=== PATIENT | female | born 1945 | race Caucasian/White ===

== ENCOUNTER → 2016-11-15 | Outpatient (CLI) | payer MEDICARE, BC | LOC: CT 08:00 | DX: R93.8 Abnormal findings on diagnostic imaging of other specified body structures (principal); K44.9 Diaphragmatic hernia without obstruction or gangrene; I70.90 Unspecified atherosclerosis | CPT/HCPCS: 71250 ==

== ENCOUNTER → 2016-12-01 | Outpatient (CLI) | payer MEDICARE, BC ==
[~2016-12-01] VITALS: Ht 172.7 cm; Wt 72.6 kg
== END ==
LOC: OPSV 11-29 11:00
DX: M81.0 Age-related osteoporosis without current pathological fracture (principal)
CPT/HCPCS: 96372

== ENCOUNTER → 2020-05-31 | Outpatient (CLI) | payer MEDICARE, BC, OTHER ==
[~2020-05-31] MED LIST: COUMADIN4 MG PO; ECOTRIN81 MG PO; HYDRALAZINE HC100 MG PO; IMDUR ER TAB 3030 MG PO; LIPITOR40 MG PO; LOPRESSOR50 MG PO; NITROSTAT0.4 MG SL; PREDNISONE20 MG PO; RANITIDINE HCL300 MG PO; ROXICODONE TAB 55 MG GT
== END ==
LOC: ECHO 05-18 11:00 → HEART 5 05-18 11:00 → ECHO 11:54
DX: I48.91 Unspecified atrial fibrillation (principal); Z12.31 Encounter for screening mammogram for malignant neoplasm of breast; I70.0 Atherosclerosis of aorta; I34.0 Nonrheumatic mitral (valve) insufficiency; I51.7 Cardiomegaly; R93.1 Abnormal findings on diagnostic imaging of heart and coronary circulation; Z90.710 Acquired absence of both cervix and uterus
CPT/HCPCS: ECHO; 77063; 77067; 93306

== ENCOUNTER 2020-07-10 10:28 | Emergency (ER) | payer MEDICARE, BC, OTHER ==
[~2020-07-10 10:28] MED LIST changes: -ROXICODONE TAB 55 MG GT
[2020-07-10 12:33] LABS: HEMOGLOBIN 13.1 gm/dl (12.3-15.3); RED BLOOD COUNT 4.19 M/UL (4.00-5.10)
[2020-07-10] MEDS ORDERED: ROXICODONE TAB 55 MG GT (14:21)
== END 2020-07-10 14:55 | disposition home or self-care (01) ==
LOC: ER1 10:28
PROVIDERS: Emergency Medicine
DX: S32.019A Unspecified fracture of first lumbar vertebra, initial encounter for closed fracture (principal); S32.029A Unspecified fracture of second lumbar vertebra, initial encounter for closed fracture; S40.012A Contusion of left shoulder, initial encounter; S70.02XA Contusion of left hip, initial encounter; I12.9 Hypertensive chronic kidney disease with stage 1 through stage 4 chronic kidney disease, or unspecified chronic kidney disease; N18.9 Chronic kidney disease, unspecified; Z79.01 Long term (current) use of anticoagulants; Z85.828 Personal history of other malignant neoplasm of skin; Z90.710 Acquired absence of both cervix and uterus; Z90.49 Acquired absence of other specified parts of digestive tract; W01.0XXA Fall on same level from slipping, tripping and stumbling without subsequent striking against object, initial encounter
CPT/HCPCS: 71111; 73030; 73552; 80053; 85025; 85610; 85730; 96374; 99284; J2270; J2405; J7040

== ENCOUNTER → 2020-09-06 | Outpatient (CLI) | payer MEDICARE, BC, OTHER ==
[~2020-09-06] MED LIST changes: +ROXICODONE TAB 55 MG GT
== END ==
LOC: EXRD 12:41
DX: I65.29 Occlusion and stenosis of unspecified carotid artery (principal)
CPT/HCPCS: 93880

== ENCOUNTER → 2020-09-22 | Outpatient (CLI) | payer MEDICARE, BC | LOC: KOH-I 15:36 | DX: R42 Dizziness and giddiness (principal); G93.89 Other specified disorders of brain | CPT/HCPCS: 70450 ==

== ENCOUNTER 2020-11-01 14:16 | Emergency (ER) | payer MEDICARE, BC ==
[2020-11-01 16:45] LABS: RED BLOOD COUNT 4.07 M/UL (4.00-5.10); WHITE BLOOD COUNT 5.7 K/UL (4.5-11.0)
== END 2020-11-01 17:39 | disposition home or self-care (01) ==
LOC: ER1 14:16
PROVIDERS: Emergency Medicine
DX: I10 Essential (primary) hypertension (principal); E11.9 Type 2 diabetes mellitus without complications; Z90.89 Acquired absence of other organs; Z88.2 Allergy status to sulfonamides; Z88.5 Allergy status to narcotic agent; Z91.041 Radiographic dye allergy status
CPT/HCPCS: 80053; 85025; 99283

== ENCOUNTER 2021-01-24 17:41 | Emergency (ER) | payer MEDICARE, BC ==
[2021-02-25] MEDS ORDERED: ULTRAM50 MG PO (13:30)
[2021-02-25] MEDS ORDERED: LIPITOR TAB 2020 MG PO (13:30)
[2021-02-25] MEDS ORDERED: PROTONIX 40 MG40 M1 PO (13:31)
[2021-02-25] MEDS ORDERED: HYDROCODONE-AC1 EAC1 PO (13:32)
[2021-02-25] MEDS ORDERED: PROCARDIA XL90 MG PO (13:40)
[2021-02-25] MEDS ORDERED: NITROSTAT 0.40.4 MG SL (13:40)
[2021-02-28] MEDS ORDERED: HYDROCODON-ACE1 EAC2 PO (09:18)
== END 2021-01-24 20:37 | disposition left against medical advice (07) ==
LOC: ER1 17:41
DX: Z53.21 Procedure and treatment not carried out due to patient leaving prior to being seen by health care provider (principal)

== ENCOUNTER → 2021-02-07 | Outpatient (CLI) | payer MEDICARE, BC | LOC: LAB 12:38 | PROVIDERS: Internal Medicine Nephrology | DX: N18.31 Chronic kidney disease, stage 3a (principal); E55.9 Vitamin D deficiency, unspecified | CPT/HCPCS: 36415; 80053; 82570; 83970; 84100; 84156 ==

== ENCOUNTER → 2021-02-10 | Outpatient (CLI) | payer MEDICARE, BC | LOC: EXRD 13:53 | DX: N18.31 Chronic kidney disease, stage 3a (principal) | CPT/HCPCS: 76775 ==

== ENCOUNTER → 2021-02-15 | Outpatient (CLI) | payer MEDICARE, BC | LOC: KOH-I 15:14 | DX: S22.060A Wedge compression fracture of T7-T8 vertebra, initial encounter for closed fracture (principal); Z87.310 Personal history of (healed) osteoporosis fracture | CPT/HCPCS: 72128 ==

== ENCOUNTER → 2021-02-22 | Outpatient (CLI) | payer MEDICARE, BC ==
[~2021-02-22] MED LIST changes: +HYDROCODONE-AC1 EAC1 PO; +LIPITOR TAB 2020 MG PO; +NITROSTAT 0.40.4 MG SL; +PROCARDIA XL90 MG PO; +PROTONIX 40 MG40 M1 PO; +ULTRAM50 MG PO
== END ==
LOC: EMI 12:00
DX: M48.54XA Collapsed vertebra, not elsewhere classified, thoracic region, initial encounter for fracture (principal); M43.8X4 Other specified deforming dorsopathies, thoracic region
CPT/HCPCS: 72146

== ENCOUNTER → 2021-02-25 | Outpatient (CLI) | payer MEDICARE, BC ==
[~2021-02-25] MED LIST changes: +HYDROCODON-ACE1 EAC2 PO
[2021-02-25 12:04] LABS: HEMOGLOBIN 12.4 gm/dl (12.3-15.3); RED BLOOD COUNT 4.07 M/UL (4.00-5.10); WHITE BLOOD COUNT 5.5 K/UL (4.5-11.0)
== END ==
LOC: OPSV2 10:30
PROVIDERS: Orthopaedic Surgery
DX: Z01.818 Encounter for other preprocedural examination (principal); I10 Essential (primary) hypertension; S22.009A Unspecified fracture of unspecified thoracic vertebra, initial encounter for closed fracture; D64.9 Anemia, unspecified; I82.409 Acute embolism and thrombosis of unspecified deep veins of unspecified lower extremity; I48.91 Unspecified atrial fibrillation; Z79.899 Other long term (current) drug therapy
CPT/HCPCS: 80048; 85025; 93005

== ENCOUNTER → 2021-02-28 | Day surgery (SDC) | payer MEDICARE, BC ==
[~2021-02-28] VITALS: Ht 172.7 cm; Wt 73.5 kg
== END | disposition home or self-care (01) ==
LOC: OR 05:14
DX: M80.88XA Other osteoporosis with current pathological fracture, vertebra(e), initial encounter for fracture (principal); I10 Essential (primary) hypertension; I48.91 Unspecified atrial fibrillation; E78.5 Hyperlipidemia, unspecified; K21.9 Gastro-esophageal reflux disease without esophagitis; Z98.890 Other specified postprocedural states; Z86.16 Personal history of COVID-19; Z91.041 Radiographic dye allergy status; Z88.5 Allergy status to narcotic agent; Z88.8 Allergy status to other drugs, medicaments and biological substances; Z79.891 Long term (current) use of opiate analgesic; Z79.899 Other long term (current) drug therapy
CPT/HCPCS: J0690; J1170; J2001; J2704; J3010; J7120; Q9967

== ENCOUNTER → 2021-04-26 | Outpatient (CLI) | payer MEDICARE, BC | LOC: RAD 15:06 | DX: R05.3 Chronic cough (principal); K44.9 Diaphragmatic hernia without obstruction or gangrene | CPT/HCPCS: 71046 ==

== ENCOUNTER → 2021-05-23 | Outpatient (CLI) | payer MEDICARE, BC ==
[~2021-05-23] VITALS: Ht 172.7 cm; Wt 68.9 kg
== END ==
LOC: OPSV 12:52
DX: M81.0 Age-related osteoporosis without current pathological fracture (principal)
CPT/HCPCS: 96372

== ENCOUNTER → 2021-07-06 | Outpatient (CLI) | payer MEDICARE, BC | LOC: KOH-I 12:05 | DX: M53.3 Sacrococcygeal disorders, not elsewhere classified (principal) | CPT/HCPCS: 72220; 73522 ==

== ENCOUNTER → 2021-08-17 | Outpatient (CLI) | payer MEDICARE, BC | LOC: MAMO 10:00 | DX: Z12.31 Encounter for screening mammogram for malignant neoplasm of breast (principal) | CPT/HCPCS: 77063; 77067 ==

== ENCOUNTER → 2021-10-21 | Outpatient (CLI) | payer MEDICARE, BC | LOC: LAB 14:20 | PROVIDERS: Internal Medicine Nephrology | DX: N18.31 Chronic kidney disease, stage 3a (principal) | CPT/HCPCS: 36415; 80053; 82570; 84156 ==

== ENCOUNTER 2022-01-13 15:33 | Emergency (ER) | payer MEDICARE, BC | END 2022-01-13 18:18 | disposition home or self-care (01) | LOC: ER1 15:33 | DX: R07.89 Other chest pain (principal); I48.91 Unspecified atrial fibrillation; E78.5 Hyperlipidemia, unspecified; I10 Essential (primary) hypertension; Z88.2 Allergy status to sulfonamides; Z88.5 Allergy status to narcotic agent; Z91.041 Radiographic dye allergy status | CPT/HCPCS: 71046; 99283 ==